=== PATIENT | female | born 1930 | race Caucasian/White ===

== ENCOUNTER 2020-02-02 14:52 | Emergency (ER) | payer OTHER ==
[~2020-02-02] VITALS: Ht 149.9 cm; Wt 59.0 kg
[~2020-02-02 14:52] MED LIST: CALCIUM1 TAB PO; COZAAR50 MG PO; FOLIC ACID0.4 MG PO; GLYBURID METFOR PO; JANUVIA100 MG PO; JANUVIA25 MG PO; KETO10TA2 PO; NABUMETONE500 MG PO; OMEPRAZOLE40 MG PO; PLAVIX75 MG PO; RANITIDINE HCL150 M1 PO; TRAMADOL HCL-AP1 TAB PO; TRAMADOL HCL50 MG PO; ULTRACET
[2020-02-02] MEDS ORDERED: DICLOFENAC SODI75 MG PO (15:43)
== END 2020-02-02 16:07 | disposition home or self-care (01) ==
LOC: ER 14:52
DX: M54.5 Low back pain (principal)